=== PATIENT | female | born 1990 | race Caucasian/White ===

== ENCOUNTER 2016-04-20 14:28 | Emergency (ER) | payer MEDICAID ==
[~2016-04-20] VITALS: Ht 154.9 cm; Wt 52.3 kg
[2016-04-20 14:37] VITALS: BP 119/78; PULSE 98; TEMP 98.5
[2016-04-20] MEDS ORDERED: NORCO 325 MG-51 TAB PO (15:52)
[2016-04-20] MEDS ORDERED: CLEOCIN HCL300 MG PO (15:52)
== END 2016-04-20 16:06 | disposition home or self-care (01) ==
LOC: COL.ER 14:28
DX: K02.9 Dental caries, unspecified (principal)